=== PATIENT | male | born 1955 | race African-American/Black ===

== ENCOUNTER 2017-05-22 07:22 | Emergency (ER) | payer BC ==
[2017-05-22] MEDS ORDERED: Acetaminophen/Codeine 30-300mg Tablet ONE (08:08)
--- NOTE | 2017-05-22 08:38 | RAD ---
LEFT WRIST THREE VIEWS: History: Wrist pain. FINDINGS: There are mild arthritic changes of the triscaphe and carpal metacarpal joint space. Marked arthriti c changes are noted of the thumb. There are no signs of fracture. There are also some degenerative changes seen at the level of the base of the second and third metac arpals. IMPRESSION: Moderate arthritic changes of the wrist, more severe changes actually appear to be at the base of th e second and third metacarpals. POS: [facility]
== END 2017-05-22 08:35 | disposition home or self-care (01) ==
LOC: MADERS 07:22
DX: M19.032 Primary osteoarthritis, left wrist (principal); F17.200 Nicotine dependence, unspecified, uncomplicated

== ENCOUNTER 2021-01-19 07:22 | Emergency (ER) | payer BC ==
[2021-01-19 08:03] LABS: Bilirubin Negative (Negative); Blood, Urine Negative (Negative); Clarity Clear (Clear); Glucose, Urine (Dipstick) 250 mg/dL (Negative); Ketone, Urine Negative (Negative); Leukocyte Negative (Negative); Nitrite Negative (Negative); Protein, Urine (Dipstick) 30 mg/dL (Neg-Trace); pH, Urine 5.5 (5.0-9.0)
[2021-01-19 08:05] LABS: Specific Gravity, Urine 1.034 (1.002-1.036)
[2021-01-19 08:10] LABS: Bacteria/HPF None Seen HPF (None Seen); Mucous/LPF Rare LPF (<2+); RBC/HPF 0-3 HPF (0-3); Squamous Epithelial None Seen HPF (0-3); WBC/HPF 0-3 HPF (0-3)
== END 2021-01-19 09:50 | disposition short-term general hospital (02) ==
LOC: MADERS 07:22
DX: K40.90 Unilateral inguinal hernia, without obstruction or gangrene, not specified as recurrent (principal); N50.89 Other specified disorders of the male genital organs; M19.90 Unspecified osteoarthritis, unspecified site; F17.210 Nicotine dependence, cigarettes, uncomplicated
CPT/HCPCS: 81001; 99284

== ENCOUNTER 2023-07-22 06:17 | Emergency (ER) | payer BC, SELFPAY ==
[2023-07-22] MEDS ORDERED: Benzonatate 100 MG CAP ONE (07:10)
[2023-07-22] MEDS ORDERED: Acetaminophen 500 MG TAB ONE (07:10)
[2023-07-22] MEDS ORDERED: Ondansetron ODT 4 MG TAB ONE (07:10)
[2023-07-22] MEDS ORDERED: Albuterol 200 PUFF (6.7GM INHALER) ONE (07:25)
[2023-07-22] MEDS ORDERED: Meclizine HCl 25 MG TAB ONE (07:26)
== END 2023-07-22 07:55 | disposition home or self-care (01) ==
LOC: MADERS 06:17
DX: J06.9 Acute upper respiratory infection, unspecified (principal); F17.210 Nicotine dependence, cigarettes, uncomplicated
CPT/HCPCS: 71046; 87635; 87804; Q0162

== ENCOUNTER 2023-09-01 13:56 | Emergency (ER) | payer MEDICARE, SELFPAY ==
[2023-09-01 15:03] LABS: #Eosinphils 0.1 thou/uL (0.0-0.7); #Monocytes 0.2 thou/uL (0.11-0.59); #Neutrophils 2.1 thou/uL (1.40-6.50); %Basophils 0.5 % (0.0-1.0); %Eosinophils 1.6 % (0.0-10.0); %Lymphocytes 28.9 % (21.0-51.0); Hematocrit 44.1 % (42.0-52.0); Hemoglobin 14.8 g/dL (14.0-18.0); Mean Corpuscular HGB CONC 33.6 g/dL (32.0-36.0); Mean Corpuscular Hemoglobin 30.7 pg (27.0-31.0); Mean Corpuscular Volume 91.5 fl (78.0-98.0); Mean Platelet Volume 7.8 fL (7.4-10.4); Platelet Count 172 10x3/uL (130-400); RBC Distribution Width 11.8 % (11.5-14.5); Red Blood Cell (RBC) Count 4.82 mill/uL (4.70-6.10); White Blood Cell (WBC) Count 3.3 10x3/uL (4.8-10.8)
[2023-09-01 15:17] LABS: ALT (SGPT) 35 U/L (8-55); AST (SGOT) 22 U/L (5-34); Albumin 3.7 g/dL (3.4-4.8); Alkaline Phosphatase 78 U/L (40-110); Anion Gap 12 mmol/L (10-20); BUN (Urea Nitrogen) 9 mg/dL (8.4-25.7); Bilirubin, Total 0.6 mg/dL (0.2-1.2); Calc. Creatinine Clearance 0 mL/min (70-130); Calcium 8.7 mg/dL (7.8-10.44); Carbon Dioxide 28 mmol/L (23-31); Chloride 105 mmol/L (98-107); Estimated GFR 98; Globulin 3.3 g/dL (2.4-3.5); Glucose 109 mg/dL (80-115); Lipase 14 U/L (8-78); Potassium 4.4 mmol/L (3.5-5.1); Sodium 141 mmol/L (136-145)
== END 2023-09-01 16:10 | disposition home or self-care (01) ==
LOC: MADERS 13:56
DX: J06.9 Acute upper respiratory infection, unspecified (principal); F17.210 Nicotine dependence, cigarettes, uncomplicated
CPT/HCPCS: 36415; 80053; 83690; 85025; 99284

== ENCOUNTER 2024-02-27 08:15 | Emergency (ER) | payer MEDICARE | END 2024-02-27 09:07 | disposition home or self-care (01) | LOC: MADERS 08:15 | DX: M79.642 Pain in left hand (principal); M19.041 Primary osteoarthritis, right hand; F17.210 Nicotine dependence, cigarettes, uncomplicated | CPT/HCPCS: 99284 ==